=== PATIENT | male | born 2000 | race Caucasian/White ===

== ENCOUNTER → 2022-06-01 | Outpatient (CLI) | payer BC ==
--- NOTE | 2022-06-01 15:35 | Diagnostic Imaging Report ---
PROCEDURE: MRI lumbar spine. TECHNIQUE: Multiplanar, multisequence MRI of the lumbar spine was performed without contrast. INDICATION: Low back pain, history of weight lifting injury. EXAMINATION: Lumbar spine MRI without contrast, 06/01/2022. LUNGS: There is normal height and alignment of the vertebral bodies. Tip of the conus unremarkable in appearance and location. L1-L2: Unremarkable. L2-L3: Unremarkable. L3-L4: Mild bilateral neural foraminal narrowing is noted. There is no significant bulging disc material. No central stenosis. L4-L5: There is mild bilateral facet omentum flavum hypertrophy. There is no central narrowing. There is moderate bilateral neural foraminal stenosis. L5-S1: There is intervertebral disc space narrowing and disc desiccation. Minimal left paracentral broad-based bulging disc material is noted. There is bilateral facet hypertrophy. There is no central narrowing. There is moderate bilateral neural foraminal stenosis. The visualized intra-abdominal structures within normal limits. IMPRESSION: Degenerative findings predominantly in the lower lumbar spine, as detailed above. No significant central stenosis is appreciated. Dictated by: Dictated on workstation # [id number]
== END ==
LOC: RAD 14:12
DX: M48.061 Spinal stenosis, lumbar region without neurogenic claudication (principal); M51.17 Intervertebral disc disorders with radiculopathy, lumbosacral region; M51.26 Other intervertebral disc displacement, lumbar region
CPT/HCPCS: 72148